=== PATIENT | male | born 1950 | race African-American/Black ===

== ENCOUNTER 2021-12-05 14:50 | Emergency (ER) | payer OTHER ==
[2021-12-05 15:00] VITALS: BP 126/90; PULSE 98; TEMP 99.7; BMI 36.6
[2021-12-05] MEDS ORDERED: ACETAMINOPHEN 500 MG TABLET (FP) PO ONE (17:38)
[2021-12-06 18:08] LABS: SARS-CoV-2 NAA Detected (Not Detected)
== END 2021-12-05 19:16 | disposition home or self-care (01) ==
LOC: JER 14:50
DX: J18.9 Pneumonia, unspecified organism (principal)
CPT/HCPCS: 71046-TC-FY; 99284-25; C9803; U0003; U0005

== ENCOUNTER 2022-09-15 14:37 | Emergency (ER) | payer OTHER ==
[2022-09-15 15:06] VITALS: BP 115/76; PULSE 96; RESP 20; TEMP 97.9; BMI 32.8
[2022-09-15] MEDS ORDERED: ACETAMINOPHEN 500 MG TABLET (FP) PO ONE (16:59)
[2022-09-15] MEDS ORDERED: ACETAMINOPHEN 500 MG TABLET (FP) ONE (17:21)
== END 2022-09-15 19:42 | disposition home or self-care (01) ==
LOC: JERFT 14:37
DX: M25.561 Pain in right knee (principal)
CPT/HCPCS: 73562-TC-RT-FY; 99283-25